=== PATIENT | female | born 1950 | race Caucasian/White ===

== ENCOUNTER 2017-06-06 14:22 | Inpatient (IN) | payer MEDICARE ==
[~2017-06-06] VITALS: Ht 171.4 cm; Wt 62.6 kg
[2017-06-06] VITALS (11 sets, daily range): BP systolic 99–116; BP diastolic 56–73
[~2017-06-06 14:22] MED LIST: HEPARIN SODIUM 1,000 UNIT/1ML VIAL IV ONE; NICARDIPINE 100MCG/ML 10ML VIAL (CATH LAB) IV ONE; NITROGLYCERIN 50MCG/ML 10ML VIAL (CATH LAB) IV ONE
[2017-06-06] MEDS ORDERED: NITROGLYCERIN OINT 1GM/INCH UDPKT TD STA (14:55)
[2017-06-06] MEDS ORDERED: SODIUM CHLORIDE 0.9% 500 ML IV ONE (14:55)
[2017-06-06] MEDS ORDERED: ONDANSETRON HCL 4MG/2ML VIAL IV STA (14:55)
[2017-06-06] MEDS ORDERED: ASPIRIN 81MG TABLET PO STA (14:55)
[2017-06-06 15:22] LABS: CHLORIDE 107 mEq/L (98-107)
[2017-06-06 15:24] LABS: CARBON DIOXIDE 27 mEq/L (21-32)
[2017-06-06 15:28] LABS: BASOPHILS % 0.5 % (0.0-2.0); D-DIMER < 0.19 mg/L FEU (<0.50); EOSINOPHILS % 0.4 % (0.0-5.0); HEMATOCRIT. 39.5 % (36.0-48.0); HEMOGLOBIN. 13.4 g/dL (12.0-16.0); LYMPHOCYTES % 18.3 % (20.0-50.0); MEAN CORPUSCULAR HEMOGLOBIN 31.6 pg (28.0-32.0); MEAN CORPUSCULAR VOLUME 93.3 fL (81.0-99.0); MEAN PLATELET VOLUME 8.1 fl (7.4-10.4); MONOCYTES % 5.4 % (2.0-8.0); NEUTROPHILS % 75.4 % (40.0-76.0); PARTIAL THROMBOPLASTIN TIME 25.2 sec (24.0-34.0); PLATELET 192 x1000/uL (130-400); PROTHROMBIN TIME 10.8 sec; RED BLOOD CELL COUNT 4.24 mill/uL (4.2-5.4); RED CELL DISTRIBUTION WIDTH 13.2 % (11.6-14.6)
[2017-06-06 15:44] LABS: TROPONIN I 0.52 ng/mL (0.00-0.04)
[2017-06-06] MEDS ORDERED: ENOXAPARIN 60MG/0.6ML SYR SUBCUT ONE (16:00)
[2017-06-06] MEDS ORDERED: SODIUM CHLORIDE 0.45% 1,000 ML IV SCH ×2 (17:15→17:45)
[2017-06-06] MEDS ORDERED: IODIXANOL 320MG/ML 100 ML BOTTLE IV ONE (17:19)
[2017-06-06] MEDS ORDERED: LIDOCAINE HCL 1% 20ML VIAL (Pyxis) INJ ONE (17:19)
[2017-06-06] MEDS ORDERED: FENTANYL CITRATE/PF 50MCG/ML 2ML VIAL ONE (17:38)
[2017-06-06] MEDS ORDERED: MIDAZOLAM HCL 2 MG/2 ML VIAL ONE ×2 (17:38→17:45)
[2017-06-06] MEDS ORDERED: ATROPINE SULFATE 1MG/10ML SYR IV PRN (18:30)
[2017-06-06] MEDS ORDERED: MORPHINE SULFATE 2 MG/ML CPJ (NOT FOR IM USE) IV PRN (18:30)
[2017-06-06] MEDS ORDERED: ACETAMINOPHEN 325MG TABLET PO PRN (18:30)
[2017-06-06] MEDS: SODIUM CHLORIDE 0.45% 1,000 ML IV SCH (20:13)
[2017-06-06] MEDS ORDERED: ZOLPIDEM TARTRATE 5MG TABLET PO PRN (20:45)
[2017-06-06] MEDS ORDERED: HYDROCODONE/ACETAMINOPHEN 5/325MG TABLET PO PRN (20:45)
[2017-06-06] MEDS ORDERED: ATORVASTATIN CALCIUM 10MG TABLET PO SCH ×2 (21:00)
[2017-06-06] MEDS ORDERED: KETOROLAC 30MG/ML VIAL IV SCH (21:45)
[2017-06-06] MEDS ORDERED: KETOROLAC 30MG/ML VIAL IV PRN (22:00)
[2017-06-06] MEDS ORDERED: CAPSAICIN 0.075% CREAM 60GM TOP PRN (22:00)
[2017-06-06] MEDS: ONDANSETRON HCL 4MG/2ML VIAL IV PRN (22:04)
[2017-06-07] VITALS (12 sets, daily range): BP systolic 104–143; BP diastolic 59–90
[2017-06-07] MEDS: SODIUM CHLORIDE 0.45% 1,000 ML IV SCH ×2 (03:20→10:30)
[2017-06-07] MEDS: ONDANSETRON HCL 4MG/2ML VIAL IV PRN (06:43)
[2017-06-07 06:55] LABS: BASOPHILS % 0.3 % (0.0-2.0); EOSINOPHILS % 0.4 % (0.0-5.0); HEMATOCRIT. 34.2 % (36.0-48.0); HEMOGLOBIN. 11.5 g/dL (12.0-16.0); LYMPHOCYTES % 28.5 % (20.0-50.0); MEAN CORPUSCULAR HEMOGLOBIN 31.6 pg (28.0-32.0); MEAN CORPUSCULAR VOLUME 94.1 fL (81.0-99.0); MEAN PLATELET VOLUME 8.5 fl (7.4-10.4); MONOCYTES % 5.8 % (2.0-8.0); PLATELET 160 x1000/uL (130-400); RED BLOOD CELL COUNT 3.63 mill/uL (4.2-5.4); RED CELL DISTRIBUTION WIDTH 13.2 % (11.6-14.6)
[2017-06-07 07:22] LABS: CARBON DIOXIDE 24 mEq/L (21-32); CHLORIDE 109 mEq/L (98-107)
[2017-06-07] MEDS ORDERED: LORA0.5T2 PO (08:02)
[2017-06-07] MEDS ORDERED: ASPIRIN 81MG EC TABLET PO SCH ×2 (09:00)
[2017-06-07 09:49] LABS: TROPONIN I 1.1 ng/mL (0.00-0.04)
== END 2017-06-07 11:25 | disposition home or self-care (01) | DRG 282 ==
LOC: ER 14:38 → EDBEDREQSVC 16:23 → EDBEDREQ 16:23 → ENRESERV 16:24 → ER 17:34 → 3WST 18:37
PROVIDERS: ADMIT Family Medicine; ATTEND Family Medicine
PROC: 4A023N7 Measurement of Cardiac Sampling and Pressure, Left Heart, Percutaneous Approach (ICD-10-PCS; principal; 2017-06-06)
PROC: B2111ZZ Fluoroscopy of Multiple Coronary Arteries using Low Osmolar Contrast (ICD-10-PCS; 2017-06-06)
PROC: B2151ZZ Fluoroscopy of Left Heart using Low Osmolar Contrast (ICD-10-PCS; 2017-06-06)
DX: I21.4 Non-ST elevation (NSTEMI) myocardial infarction (principal); I11.9 Hypertensive heart disease without heart failure; J38.5 Laryngeal spasm; I20.0 Unstable angina; Z80.0 Family history of malignant neoplasm of digestive organs; Z85.3 Personal history of malignant neoplasm of breast; Z92.3 Personal history of irradiation; Z90.13 Acquired absence of bilateral breasts and nipples; Z79.899 Other long term (current) drug therapy; Z79.82 Long term (current) use of aspirin; Z92.21 Personal history of antineoplastic chemotherapy
CPT/HCPCS: 36415; 71010; 80048; 80053; 80061; 83690; 83880; 84443; 84484; 85025; 85379; 85610; 85730; 93005; 93306; 93458; 96372; 96374; 99285; C1769; C1893; J1644; J1650; J1885; J2250; J2270; J2405; J3010; J3490; J7030; J7040; Q9967